=== PATIENT | female | born 1990 | race Caucasian/White ===

== ENCOUNTER 2022-09-07 13:10 | Inpatient (IN) | payer BC ==
[2022-09-07] MEDS ORDERED: Diphenoxylate HCl/Atropine Tablet PO PRN ×2 (19:30)
[2022-09-07] MEDS ORDERED: Butorphanol Tartrate 1 MG/ML VIAL SLOW IVP PRN (19:30)
[2022-09-07] MEDS ORDERED: HYDROcodone/Acetaminophen 5/325 mg Tablet PO PRN ×2 (19:30)
[2022-09-07] MEDS ORDERED: Lactated Ringer's 1,000 ML IV SCH (19:30)
[2022-09-07] MEDS ORDERED: Zolpidem Tartrate 5 MG TAB PO PRN (19:30)
[2022-09-07] MEDS ORDERED: Ibuprofen 800 MG TAB PO PRN (19:30)
[2022-09-07] MEDS ORDERED: Carboprost 250 MCG/ML AMP IM PRN (19:30)
[2022-09-07] MEDS ORDERED: NS w/ Oxytocin 30 units 500 ML IV SCH ×3 (19:30)
[2022-09-07] MEDS ORDERED: hydrALAZINE 20 MG/ML VIAL SLOW IVP PRN (19:30)
[2022-09-07] MEDS ORDERED: Ondansetron PF 4 MG/2 ML Vial IVP PRN (19:30)
[2022-09-07] MEDS ORDERED: Misoprostol 200 MCG TAB PR PRN (19:30)
[2022-09-07] MEDS ORDERED: Docusate 100 MG CAP PO PRN (19:30)
[2022-09-07] MEDS ORDERED: Promethazine HCl 25 MG/ML VIAL IM PRN (19:30)
[2022-09-07] MEDS ORDERED: Lidocaine 1% (PF) 30 ML VIAL SC PRN (19:30)
[2022-09-07] MEDS ORDERED: Acetaminophen 500 MG TAB PO PRN (19:30)
[2022-09-07 20:20] VITALS: BMI 36.0
[2022-09-07] MEDS: Misoprostol 100 MCG TAB VAG SCH (21:13)
[2022-09-07 21:16] LABS: Hemoglobin 11.3 g/dL (12.0-15.5); Mean Corpuscular HGB CONC 33.6 g/dL (32.0-36.0); Mean Corpuscular Hemoglobin 29.1 pg (27.0-33.0); Mean Corpuscular Volume 86.6 fl (81.6-98.3); Mean Platelet Volume 12.4 fl (7.4-10.4); Platelet Count 192 10x3/uL (150-450); RBC Distribution Width 13.7 % (11.5-14.5); Red Blood Cell (RBC) Count 3.88 10x6/uL (3.90-5.03); White Blood Cell (WBC) Count 11.8 10x3/uL (3.5-10.5)
[2022-09-07 21:47] LABS: Syphilis Antibody Nonreactive (Nonreactive); Syphilis Antibody Index 0.09 S/CO (<1.00 Non-Reactive)
[2022-09-07 21:50] LABS: HBSAg Index 0.14 S/CO (0-0.99); HIV (1/2) Antibody/Antigen Non-Reactive (NonReactive); HIV 1/2 INDEX 0.07 S/CO (<1.00); Hep B Surf Ag - L&D Non-Reactive S/CO (NonReactive)
[2022-09-08] MEDS ORDERED: ePHEDrine Sulfate 50 MG/10 ML VIAL SLOW IVP PRN (01:36)
[2022-09-08] MEDS ORDERED: Ondansetron PF 4 MG/2 ML Vial IVP PRN ×2 (01:36→07:24)
[2022-09-08] MEDS ORDERED: Naloxone HCl 0.4 mg/ml Vial IVP PRN ×2 (01:36)
[2022-09-08] MEDS ORDERED: Promethazine HCl 25 MG/ML VIAL IM PRN (01:36)
[2022-09-08] MEDS ORDERED: Moisturizing Cream (Eucerin) 113 GM JAR TOP PRN (01:36)
[2022-09-08] MEDS ORDERED: Lactated Ringer's 500 ML IV PRN (01:36)
[2022-09-08] MEDS ORDERED: Acetaminophen 325 MG TAB PO PRN ×2 (01:36→07:26)
[2022-09-08] MEDS ORDERED: diphenhydrAMINE 50 MG/ML VIAL IVP PRN (01:36)
[2022-09-08] MEDS ORDERED: Communication Order-Pharmacy FS SCH (01:45)
[2022-09-08] MEDS ORDERED: Fentanyl 2 mcg/Bupivacaine 0.1% Cassette 100 ML EPIDURAL SCH (01:45)
[2022-09-08] MEDS ORDERED: Milk Of Magnesia 30 ML UDCUP PO PRN (07:24)
[2022-09-08] MEDS ORDERED: Boostrix 0.5 ML (Tdap) VIAL (>/=7 yrs of age) IM ONE (07:24)
[2022-09-08] MEDS ORDERED: Misoprostol 200 MCG TAB VAG PRN (07:24)
[2022-09-08] MEDS ORDERED: Benzocaine-Menthol 82.5 ML CAN TOP PRN (07:24)
[2022-09-08] MEDS ORDERED: Lanolin Ointment 7 GM TUBE TOP PRN (07:24)
[2022-09-08] MEDS ORDERED: Bisacodyl 10 MG SUPP PR PRN (07:24)
[2022-09-08] MEDS ORDERED: hydrALAZINE 20 MG/ML VIAL SLOW IVP PRN (07:24)
[2022-09-08] MEDS ORDERED: diphenhydrAMINE 25 MG CAP PO PRN (07:24)
[2022-09-08] MEDS ORDERED: Preparation H Ointment 28 GM TUBE PR PRN (07:24)
[2022-09-08] MEDS ORDERED: Witch Hazel-Glycerin 1 EACH JAR TOP PRN (07:26)
[2022-09-08] MEDS ORDERED: NS w/ Oxytocin 30 units 500 ML IV SCH (07:30)
[2022-09-08] MEDS: Ibuprofen 800 MG TAB PO SCH ×2 (14:03→21:22)
[2022-09-08] MEDS ORDERED: Bupivacaine/Epinephrine 0.25% 30 ML VIAL ONE (16:34)
[2022-09-08] MEDS ORDERED: Bupivacaine HCl 0.5%/Epinephrine 1:200,000/PF 30 ml Vial ONE (16:34)
[2022-09-08] MEDS: Ferrous Sulfate 325 MG TAB PO SCH (16:42)
[2022-09-08] MEDS: Prenatal Vitamin 1 TAB PO SCH (16:42)
[2022-09-08] MEDS: Misoprostol 100 MCG TAB VAG SCH (16:43)
[2022-09-08] MEDS: Docusate 100 MG CAP PO SCH ×2 (16:48→21:30)
[2022-09-09] MEDS ORDERED: HYDROcodone/Acetaminophen 5/325 mg Tablet PO PRN ×2 (02:00)
[2022-09-09] MEDS ORDERED: Zolpidem Tartrate 5 MG TAB PO PRN (02:00)
[2022-09-09 03:20] LABS: Hemoglobin 9.7 g/dL (12.0-15.5); Mean Corpuscular Hemoglobin 29.3 pg (27.0-33.0); Mean Corpuscular Volume 88.8 fl (81.6-98.3); Mean Platelet Volume 12.4 fl (7.4-10.4); Platelet Count 162 10x3/uL (150-450); RBC Distribution Width 13.9 % (11.5-14.5); Red Blood Cell (RBC) Count 3.31 10x6/uL (3.90-5.03); White Blood Cell (WBC) Count 11.3 10x3/uL (3.5-10.5)
[2022-09-09] MEDS: Ibuprofen 800 MG TAB PO SCH ×2 (05:05→14:07)
[2022-09-09 07:25] VITALS: BP 101/59; TEMP 97.9
[2022-09-09] MEDS: Ferrous Sulfate 325 MG TAB PO SCH ×2 (07:53→08:58)
[2022-09-09] MEDS: Prenatal Vitamin 1 TAB PO SCH (08:58)
[2022-09-09] MEDS: Docusate 100 MG CAP PO SCH (08:58)
== END 2022-09-09 14:30 | disposition home or self-care (01) | DRG 806 ==
LOC: CSHLD 19:14 → CSHPP 09-08 15:22
PROVIDERS: ADMIT Obstetrics & Gynecology; ATTEND Obstetrics & Gynecology
PROC: 3E0P7VZ Introduction of Hormone into Female Reproductive, Via Natural or Artificial Opening (ICD-10-PCS; 2022-09-05)
PROC: 10E0XZZ Delivery of Products of Conception, External Approach (ICD-10-PCS; principal; 2022-09-08)
PROC: 0HQ9XZZ Repair Perineum Skin, External Approach (ICD-10-PCS; 2022-09-08)
PROC: 10907ZC Drainage of Amniotic Fluid, Therapeutic from Products of Conception, Via Natural or Artificial Opening (ICD-10-PCS; 2022-09-08)
DX: O77.0 Labor and delivery complicated by meconium in amniotic fluid (principal); O99.354 Diseases of the nervous system complicating childbirth; Z37.0 Single live birth; Z3A.39 39 weeks gestation of pregnancy; G43.909 Migraine, unspecified, not intractable, without status migrainosus; F41.9 Anxiety disorder, unspecified; O99.344 Other mental disorders complicating childbirth; O99.02 Anemia complicating childbirth; D64.9 Anemia, unspecified; O75.5 Delayed delivery after artificial rupture of membranes; O70.0 First degree perineal laceration during delivery; Z87.440 Personal history of urinary (tract) infections; Z86.19 Personal history of other infectious and parasitic diseases; Z79.899 Other long term (current) drug therapy
CPT/HCPCS: 36415; 51702; 85027; 86780; 86850; 86900; 86901; 87340; 87389; J2590